=== PATIENT | female | born 1975 | race Caucasian/White ===

== ENCOUNTER 2022-12-12 04:07 | Day surgery (SDC) | payer OTHER ==
[2022-12-09 09:03] VITALS: BMI 29.5
[2022-12-12] MEDS ORDERED: MIDAZOLAM HCL 2 MG/2 ML SINGLE DOSE VIAL ONE (09:34)
[2022-12-12] MEDS ORDERED: PROPOFOL 20 ML ONE ×2 (09:34→10:32)
[2022-12-12] MEDS ORDERED: LIDOCAINE HCL 1%, 10 MG/ML (10ML VIAL) MDV ONE (09:56)
[2022-12-12] MEDS ORDERED: ceFAZolin SODIUM 1 GM VIAL IVPB ONE ×2 (10:21→10:30)
[2022-12-12] MEDS ORDERED: LIDOCAINE HCL 1%, 10 MG/ML (20ML VIAL) INF ONE ×3 (10:25→10:39)
[2022-12-12] MEDS ORDERED: BUPIVACAINE HCL/PF 0.5% (5MG/ML) 10 ML VIAL NR ONE ×3 (10:25→10:39)
[2022-12-12] MEDS ORDERED: PROPOFOL 40 ML ONE (10:35)
[2022-12-12] MEDS ORDERED: DEXAMETHASONE SOD PHOSPHATE 4 MG/1 ML VIAL ONE (10:54)
[2022-12-12] MEDS ORDERED: ceFAZolin SODIUM 1 GM VIAL ONE (10:54)
[2022-12-12] MEDS ORDERED: ONDANSETRON 4 MG/2 ML VIAL ONE (10:54)
[2022-12-12] MEDS ORDERED: KETOROLAC TROMETHAMINE 30 MG/1 ML VIAL ONE (10:54)
[2022-12-12] MEDS ORDERED: oxyCODONE HCL 5 MG TABLET PO ONE (14:02)
[2022-12-12] MEDS ORDERED: oxyCODONE HCL 5 MG TABLET ONE (14:05)
[2022-12-12 16:00] VITALS: RESP 20; TEMP 97.5
[2022-12-12 16:03] VITALS: BP 141/84; PULSE 85
== END 2022-12-12 15:05 | disposition home or self-care (01) ==
LOC: JASU-SURG 04:07
PROVIDERS: ATTEND Orthopaedic Surgery
PROC: 0LB50ZZ Excision of Right Lower Arm and Wrist Tendon, Open Approach (ICD-10-PCS; 2022-12-12)
PROC: 0LB70ZZ Excision of Right Hand Tendon, Open Approach (ICD-10-PCS; 2022-12-12)
PROC: 01N50ZZ Release Median Nerve, Open Approach (ICD-10-PCS; principal; 2022-12-12 10:00)
PROC: 0LN70ZZ Release Right Hand Tendon, Open Approach (ICD-10-PCS; 2022-12-12 10:00)
DX: G56.01 Carpal tunnel syndrome, right upper limb (principal); M65.331 Trigger finger, right middle finger
CPT/HCPCS: 81025; 88304-TC

== ENCOUNTER 2024-09-25 09:34 | Emergency (ER) | payer OTHER ==
[2024-09-25 09:47] VITALS: BP 150/80; PULSE 93; RESP 18; TEMP 99; BMI 30.2
== END 2024-09-25 13:58 | disposition home or self-care (01) ==
LOC: JER 09:34
DX: S02.2XXA Fracture of nasal bones, initial encounter for closed fracture (principal); W01.198A Fall on same level from slipping, tripping and stumbling with subsequent striking against other object, initial encounter; Y99.0 Civilian activity done for income or pay
CPT/HCPCS: 70450-TC; 70486-TC; 99284-25